=== PATIENT | female | born 1980 | race Hispanic/Latino ===

== ENCOUNTER 2022-01-13 11:12 | Outpatient (CLI) | payer BC | END 2022-01-13 11:13 | disposition home or self-care (01) | LOC: CSHMAMMO 11:12 | PROVIDERS: ATTEND Obstetrics & Gynecology | DX: Z12.31 Encounter for screening mammogram for malignant neoplasm of breast (principal) | CPT/HCPCS: 77063; 77067 ==

== ENCOUNTER 2022-10-19 16:07 | Outpatient (CLI) | payer BC | END 2022-10-19 16:08 | disposition home or self-care (01) | LOC: CSHCT 16:07 | PROVIDERS: ATTEND Family Medicine | DX: J01.40 Acute pansinusitis, unspecified (principal) ==

== ENCOUNTER 2024-05-28 13:20 | Outpatient (CLI) | payer OTHER | END 2024-05-28 13:21 | disposition home or self-care (01) | LOC: CSHMAMMO 13:20 | PROVIDERS: ATTEND Obstetrics & Gynecology | DX: Z12.31 Encounter for screening mammogram for malignant neoplasm of breast (principal); Z80.3 Family history of malignant neoplasm of breast | CPT/HCPCS: 77063; 77067 ==